=== PATIENT | male | born 1980 | race Caucasian/White ===

== ENCOUNTER 2020-03-27 23:52 | Emergency (ER) | payer BC ==
[~2020-03-27] VITALS: Ht 180.3 cm; Wt 78.9 kg
[2020-03-27 23:54] VITALS: BP 177/82
== END 2020-03-28 01:16 | disposition home or self-care (01) ==
LOC: ED 03-28 00:50
DX: Z00.00 Encounter for general adult medical examination without abnormal findings (principal)
CPT/HCPCS: 36415; 80307; 99283